=== PATIENT | male | born 1980 | race Caucasian/White ===

== ENCOUNTER 2017-12-28 07:35 | Emergency (ER) | payer MEDICAID ==
[~2017-12-28] VITALS: Ht 165.1 cm; Wt 61.0 kg
[2017-12-28 10:05] VITALS: BP 107/59
[2017-12-28 10:47] LABS: HEMATOCRIT. 44.9 % (42.0-52.0); HEMOGLOBIN. 15.4 g/dL (14.0-18.0); MEAN CORPUSCULAR HEMOGLOBIN 29.7 pg (28.0-32.0); MEAN CORPUSCULAR VOLUME 86.7 fL (80.0-94.0); MEAN PLATELET VOLUME 8.2 fl (7.4-10.4); PLATELET 169 x1000/uL (130-400); RED BLOOD CELL COUNT 5.18 mill/uL (4.7-6.1); RED CELL DISTRIBUTION WIDTH 13.7 % (11.6-14.6)
[2017-12-28 10:49] LABS: CHLORIDE 109 mEq/L (98-107)
[2017-12-28 11:41] LABS: PLATELET ESTIMATE NORMAL
== END 2017-12-28 11:39 | disposition home or self-care (01) ==
LOC: ER 09:22
DX: R10.33 Periumbilical pain (principal)
CPT/HCPCS: 36415; 71045; 74018; 80053; 83690; 85025; 93005; 99285